=== PATIENT | male | born 1965 | race American Indian/Alaskan Native ===

== ENCOUNTER 2017-10-09 06:45 | Day surgery (SDC) | payer MEDICAID ==
[~2017-10-09 06:45] MED LIST: ANCEF/STERILE WATER 2 GM/20 ML IV NR
--- NOTE | 2017-10-09 07:51 | Anesthesia Consultation ---
Anesthesia Consult and Med Hx Date of service: 10/09/17 - Airway Anesthetic Teeth Evaluation: Poor (front bottom teeth very loose) ROM Head & Neck: Adequate Mental/Hyoid Distance: Adequate Mallampati Class: Class II Intubation Access Assessment: Probably Good - Pulmonary Exam CTA: Yes - Cardiac Exam Cardiac Exam: RRR - Pre-Operative Health Status ASA Pre-Surgery Classification: ASA3 - Pulmonary Hx Smoking: Yes Hx Sleep Apnea: Yes - Cardiovascular System Hx Hypertension: Yes (X 5Y) - Central Nervous System Hx Neuromuscular Disorder: Yes (OA) - Gastrointestinal Hx Gastroesophageal Reflux Disease: Yes - Endocrine Hx Non-Insulin Dependent Diabetes: Yes - Other Systems Hx Obesity: Yes
--- NOTE | 2017-10-09 07:52 | Anesthesia Day of Surgery ---
Anesthesia Day of Surgery - Day of Surgery Patient Examined: Yes Patient H&P Reviewed: Yes Patient is NPO: Yes
[2017-10-09] MEDS ORDERED: VERSED IV NR (08:00)
[2017-10-09] MEDS ORDERED: NACL 0.9% 1000 ML 1,000 ML IV SCH (08:00)
[2017-10-09] MEDS ORDERED: PEPCID PO NR (08:00)
[2017-10-09] MEDS ORDERED: NACL BACTERIOSTATIC INFILTRATI ONE (08:21)
[2017-10-09] MEDS ORDERED: DILAUDID ONE (08:48)
[2017-10-09] MEDS ORDERED: XYLOCAINE MPF 2% ONE (08:48)
[2017-10-09] MEDS ORDERED: DIPRIVAN 10 MG/ML IV ONE ×4 (08:49→10:22)
[2017-10-09] MEDS ORDERED: MARCAINE 0.25% INFILTRATI ONE ×2 (09:44)
[2017-10-09] MEDS ORDERED: XYLOCAINE 1% 20 mL INFILTRATI ONE ×2 (09:44)
[2017-10-09] MEDS ORDERED: NACL 0.9% IR ONE (09:52)
[2017-10-09] MEDS ORDERED: VERSED ONE (10:10)
[2017-10-09] MEDS ORDERED: ZOFRAN ONE (10:27)
--- NOTE | 2017-10-09 10:43 | Post Operative Note ---
Pre-op diagnosis: Sebaceous cysts scalp and antr chest wall Post-op diagnosis: same Findings: mutiple sebaceous cysts - scalp -1 : antr chest wall - 3 Procedure: Excision sebaceous cysts scalp , antr chest wall Anesthesia: MAC Surgeon: ANA MENDES Estimated blood loss: minimal Pathology: list (sebaceous cysts) Specimen disposition: to lab Condition: stable Disposition: PACU
--- NOTE | 2017-10-09 10:44 | Discharge Summary ---
Short Stay Discharge Plan Weight Bearing Status: Full Weight Bearing Diet: regular Wound: open to air Follow up with: PRIMARY CARE, [Primary Care Provider] - 7 Days Prescriptions: HYDROcodone/APAP 5-325 [[place] 5-325 mg TAB] 1 each PO Q6HR PRN #20 tablet PRN Reason: Pain
[2017-10-09] MEDS ORDERED: NORCO 5/325 PO PRN (11:07)
--- NOTE | 2017-10-09 11:49 | Operative Report ---
PREOPERATIVE DIAGNOSIS: Multiple sebaceous cysts, scalp and anterior chest wall. POSTOPERATIVE DIAGNOSIS: Multiple sebaceous cysts, scalp and anterior chest wall. OPERATIVE PROCEDURE: Excision of multiple sebaceous cysts. ANESTHESIA: Local 1% Xylocaine with 0.25% Marcaine and IV sedation. SPECIMENS: Sebaceous cyst. BLOOD LOSS: Minimal. IMPLANTS: None. INDICATIONS: A 52-year-old man originally presented with an infected sebaceous cyst, anterior chest wall to the right side of the midline that was drained in the office this is healed well. He has noninfected sebaceous cyst in the anterior chest wall and the scalp and he is brought in for excision of all the 4 of them. FINDINGS: Scalp lesion measured 1.5 x 2 cm in the right parietal area without any infection. Anterior chest wall had 3 lesions and to the right of the midline below the nipple was the area that he had I and D done and has healed well. There was no residual scarring. Adjacent to that on the right side, there was a 1.5 x 1.5 cm sebaceous cyst and below the nipple on the left anterior chest wall, there was another two 1.5 x 2 cm sebaceous cysts. All was sent for histopathological examination. DESCRIPTION OF PROCEDURE: After satisfactory IV sedation, initially the scalp lesion was prepped and draped and after infiltrating local anesthetic with a small piece of scalp skin, the lesion was removed and hemostasis was checked by cautery. The wound was irrigated with saline solution and subdermal tissue approximated with 3-0 Vicryl, skin with 4-0 Vicryl. With a separate prepping and draping of the anterior chest wall lesion, all of them were excised using a similar technique, using local anesthetic. All the incisions were closed in 2-layers with 3-0 Vicryl and 4-0 Vicryl. He tolerated the procedure well. Blood loss was minimal. JOB# [id number] HELENN/KELSEY
[2017-10-09 17:59] VITALS: BP 130/92
== END 2017-10-09 12:20 | disposition home or self-care (01) ==
LOC: OR 06:45
PROVIDERS: ATTEND Surgery
DX: L72.3 Sebaceous cyst (principal); I10 Essential (primary) hypertension; K21.9 Gastro-esophageal reflux disease without esophagitis; M19.90 Unspecified osteoarthritis, unspecified site; E11.9 Type 2 diabetes mellitus without complications; E78.00 Pure hypercholesterolemia, unspecified; G47.33 Obstructive sleep apnea (adult) (pediatric); F17.200 Nicotine dependence, unspecified, uncomplicated; F41.9 Anxiety disorder, unspecified; F32.9 Major depressive disorder, single episode, unspecified; E66.9 Obesity, unspecified; Z68.38 Body mass index [BMI] 38.0-38.9, adult; Z79.899 Other long term (current) drug therapy
CPT/HCPCS: 11406; 11423; 82962; 88304; J0690; J1170; J2250; J2405; J2704; J7030; 88307

== ENCOUNTER 2018-08-05 19:55 | Emergency (ER) | payer SELFPAY ==
[2018-08-05] MEDS ORDERED: NACL 0.9% 1000 ML 1,000 ML IV ONE (20:46)
[2018-08-05 21:16] LABS: Basophils # (Auto) 0.1 K/mm3 (0.0-0.1); Basophils % (Auto) 0.9 % (0.0-1.8); Eosinophils # (Auto) 0.3 K/mm3 (0.0-0.4); Eosinophils % (Auto) 2.8 % (0.0-4.3); Lymphocytes % (Auto) 33.4 % (13.4-35.0); Mean Corpuscular HGB Conc 36 % (32-34); Mean Corpuscular Hemoglobin 35 pg (28-32); Mean Corpuscular Volume 97 fl (84-94); Monocytes # (Auto) 0.5 K/mm3 (0.0-0.8); Monocytes % (Auto) 5.5 % (0.0-7.3); Platelet Count 233 K/mm3 (140-440); Red Blood Count 4.22 M/mm3 (3.65-5.03); Red Cell Distribution Width 13.3 % (13.2-15.2)
[2018-08-05 21:27] LABS: INR 0.89 (0.87-1.13)
[2018-08-05 21:28] LABS: Partial Thromboplastin Time 25.8 Sec. (24.2-36.6)
[2018-08-05 21:33] LABS: Alanine Aminotransferase 14 units/L (7-56); Albumin 3.8 g/dL (3.9-5); BUN/Creatinine Ratio 13; Blood Urea Nitrogen 14 mg/dL (9-20); Hemolysis Index 24; Lipase 33 units/L (13-60)
[2018-08-05 21:43] LABS: Hematocrit 40.9 % (35.5-45.6); Hemoglobin 14.8 gm/dl (11.8-15.2)
[2018-08-05] MEDS ORDERED: NORCO 5/325 PO ONE (22:05)
--- NOTE | 2018-08-05 22:11 | Emergency Department Report ---
HPI - General Chief Complaint: GI Bleed Time Seen by Provider: 08/05/18 21:22 - HPI HPI: Room 1 The patient is a 52-year-old male presenting with a chief complaint of rectal bleeding. The patient states for the past 4-5 days he's noticed blood in stool approximately twice a day. Patient admits to right-sided abdominal pain for the past 6-7 days. Patient states his pain is intermittent. Of note the patient states he had a colonoscopy performed by Dr. Gorman 07/24/2018 that revealed colonic polyps and he had some removed. Patient states there was no bleeding after the procedure for approximately 8 days. Patient now complains of abdominal pain and gives his pain score of 6/10. The patient states his last episode of rectal bleeding occurred at 17:00. Patient does occasional nausea and vomiting but denies hematemesis Location: Gastrointestinal system Duration: [See above] Quality: Pain Severity:6/10 Modifying factors: [see above] Context: [see above] Mode of transportation: [not driving] ED Past Medical Hx - Past Medical History Hx Hypertension: Yes (X 5Y) Hx Diabetes: Yes (NIDDM X5Y) Hx GERD: Yes Additional medical history: Colon Polyps - Surgical History Additional Surgical History: Fissures Repair 7, colonic polyp removal - Social History Smoking Status: Current Some Day Smoker (cigars) Substance Use Type: None (denies illicit drug use), Alcohol (occasional) - Medications Home Medications: Home Medications Medication Instructions Recorded Confirmed Last Taken Type Lisinopril [Zestril TAB] 5 mg PO QDAY 06/09/14 10/03/17 10/08/17 History glipiZIDE [glipiZIDE XL] 2.5 mg PO QDAY 06/09/14 10/03/17 10/08/17 History Meclizine [Antivert] 12.5 mg PO TID PRN #24 tablet 03/13/16 10/09/17 3 Weeks Ago Rx ~09/18/17 oxyCODONE /ACETAMINOPHEN [Percocet 1 tab PO Q6HR PRN 10/03/17 10/03/17 Unknown History 5/325 mg] HYDROcodone/APAP 5-325 [[place] 1 each PO Q6HR PRN #20 tablet 10/09/17 Unknown Rx 5-325 mg TAB] Hydrocortisone [Anucort-HC SUPPOS] 25 mg RC BID #10 supp.rect 08/05/18 Unknown Rx ED Review of Systems ROS: Stated complaint: RECTAL BLEEDING Other details as noted in HPI Constitutional: no symptoms reported Eyes: denies: eye pain ENT: denies: throat pain Respiratory: no symptoms reported Cardiovascular: denies: chest pain Endocrine: no symptoms reported Gastrointestinal: abdominal pain, nausea, vomiting, hematochezia. denies: hematemesis Genitourinary: denies: dysuria Musculoskeletal: denies: back pain Neurological: denies: headache Physical Exam - Physical Exam Vital Signs: Vital Signs 08/05/18 20:40 Temperature 99.4 F Pulse Rate 97 H Respiratory 20 Rate Blood Pressure 159/89 O2 Sat by Pulse 99 Oximetry Physical Exam: GENERAL: The patient is well-developed well-nourished male lying on stretcher not appearing to be in acute distress. [] HEENT: Normocephalic. Atraumatic. Extraocular motions are intact. Patient has moist mucous membranes. NECK: Supple. Trachea midline CHEST/LUNGS: Clear to auscultation. There is no respiratory distress noted. HEART/CARDIOVASCULAR: Regular. There is no tachycardia. There is no gallop rub or murmur. ABDOMEN: Abdomen is soft, mild discomfort to palpation in the right upper quadrant and suprapubic region. Patient has normal bowel sounds. There is no abdominal distention. SKIN: There is no rash. There is no edema. There is no diaphoresis. NEURO: The patient is awake, alert, and oriented. The patient is cooperative. The patient has normal speech MUSCULOSKELETAL: There is no evidence of acute injury. RECTAL: Guaiac negative ED Course Vital Signs 08/05/18 20:40 Temperature 99.4 F Pulse Rate 97 H Respiratory 20 Rate Blood Pressure 159/89 O2 Sat by Pulse 99 Oximetry - Consultations Consultation #1: 08/05/18 23:29 GI paged 08/05/18 23:[address] Chamorro. Ashley to discharge patient home with Brandi-Fredi suppository ED Medical Decision Making - Lab Data Result diagrams: 08/05/18 20:56 08/05/18 20:56 Laboratory Tests 08/05/18 08/05/18 08/05/18 20:56 20:56 20:56 WBC 9.1 RBC 4.22 Hgb 14.8 Hct 40.9 MCV 97 H MCH 35 H MCHC 36 H RDW 13.3 Plt Count 233 Lymph % (Auto) 33.4 [place] % (Auto) 5.5 Eos % (Auto) 2.8 Baso % (Auto) 0.9 Lymph # 3.0 [place] # 0.5 Eos # 0.3 Baso # 0.1 Seg Neutrophils % 57.4 Seg Neutrophils # 5.2 PT 12.5 INR 0.89 APTT 25.8 Sodium 137 Potassium 3.8 Chloride 103.1 Carbon Dioxide 25 Anion Gap 13 BUN 14 Creatinine 1.1 Estimated GFR > 60 BUN/Creatinine Ratio 13 Glucose 107 H Calcium 9.0 Total Bilirubin 0.20 AST 21 ALT 14 Alkaline Phosphatase 54 Total Protein 7.0 Albumin 3.8 L Albumin/Globulin Ratio 1.2 Lipase 33 Blood Type Antibody Screen 08/05/18 20:56 WBC RBC Hgb Hct MCV MCH MCHC RDW Plt Count Lymph % (Auto) [place] % (Auto) Eos % (Auto) Baso % (Auto) Lymph # [place] # Eos # Baso # Seg Neutrophils % Seg Neutrophils # PT INR APTT Sodium Potassium Chloride Carbon Dioxide Anion Gap BUN Creatinine Estimated GFR BUN/Creatinine Ratio Glucose Calcium Total Bilirubin AST ALT Alkaline Phosphatase Total Protein Albumin Albumin/Globulin Ratio Lipase Blood Type O POSITIVE Antibody Screen Negative - Radiology Data Radiology results: report reviewed (CT abdomen and pelvis), image reviewed (CT abdomen and pelvis) [place] [id number] Cat Scan Report Signed Patient: STEPHANIE ARZATE JR MR#: [id number] : 1965 Acct:[id number] Age/Sex: 52 / M ADM Date: 08/05/18 Loc: ED Attending Dr: Ordering Physician: DEEP BOX MD Date of Service: 08/05/18 Procedure(s): CT abdomen pelvis w con Accession Number(s): [id number] cc: DEEP BOX MD FINAL REPORT PROCEDURE: CT ABDOMEN PELVIS W CON TECHNIQUE: Computerized axial tomography of the abdomen and pelvis was performed after the IV injection of iodinated nonionic contrast. HISTORY: right-sided abdominal pain, rectal bleeding COMPARISON: No prior studies are available for comparison. FINDINGS: Visualized lower thorax: No significant abnormality. Liver: Normal size and attenuation. Spleen: Normal size and attenuation. Gallbladder and biliary system: Normal. Pancreas: Normal. Adrenals: Normal. Kidneys: There are no kidney stones or ureteral stones. There is no hydronephrosis.. There is a cyst in the lower pole the left kidney measuring 13 millimeters. GI tract: There is no bowel obstruction, colitis or enteritis. The appendix is normal.. Lymph nodes and mesentery: Normal. Vasculature: Normal. Bladder: Normal. Reproductive organs: Normal. Peritoneum: There is no ascites or free air, abscess or adenopathy.. Musculoskeletal structures: No significant abnormality. Other: None. IMPRESSION: There is no acute intra abdominal abnormality Transcribed By: CO Dictated By: JUAN F ANDRES MD Electronically Authenticated By: JUAN F ANDRES MD Signed Date/Time: 08/05/182313 DD/ 13 TD/TT: 08/05/182313 - Differential Diagnosis rectal bleeding, diverticulosis, bowel perforation Critical care attestation.: If time is entered above; I have spent that time in minutes in the direct care of this critically ill patient, excluding procedure time. ED Disposition Clinical Impression: Acute abdominal pain, Rectal bleeding Disposition: DC-01 TO HOME OR SELFCARE Is pt being admited?: No Does the pt Need Aspirin: No Condition: Stable Instructions: Rectal Bleeding (ED) Additional Instructions: Return to the emergency department immediately should you develop worsening symptoms, fever, inability to tolerate food or liquid or any other concerns. Prescriptions: Hydrocortisone [Anucort-HC SUPPOS] 25 mg RC BID #10 supp.rect Referrals: PRIMARY CAREMD [Primary Care Provider] - 3-5 Days YOUNG GORMAN MD [Staff Physician] - 3-5 Days Forms: Accompanied Note Time of Disposition: 23:41
--- NOTE | 2018-08-05 23:16 | Cat Scan Report ---
FINAL REPORT PROCEDURE: CT ABDOMEN PELVIS W CON TECHNIQUE: Computerized axial tomography of the abdomen and pelvis was performed after the IV injection of iodinated nonionic contrast. HISTORY: right-sided abdominal pain, rectal bleeding COMPARISON: No prior studies are available for comparison. FINDINGS: Visualized lower thorax: No significant abnormality. Liver: Normal size and attenuation. Spleen: Normal size and attenuation. Gallbladder and biliary system: Normal. Pancreas: Normal. Adrenals: Normal. Kidneys: There are no kidney stones or ureteral stones. There is no hydronephrosis.. There is a cyst in the lower pole the left kidney measuring 13 millimeters. GI tract: There is no bowel obstruction, colitis or enteritis. The appendix is normal.. Lymph nodes and mesentery: Normal. Vasculature: Normal. Bladder: Normal. Reproductive organs: Normal. Peritoneum: There is no ascites or free air, abscess or adenopathy.. Musculoskeletal structures: No significant abnormality. Other: None. IMPRESSION: There is no acute intra abdominal abnormality
[2018-08-06 00:09] VITALS: BP 147/83
== END 2018-08-06 00:09 | disposition home or self-care (01) ==
LOC: ED 19:55
DX: K62.5 Hemorrhage of anus and rectum (principal); R10.9 Unspecified abdominal pain; R11.2 Nausea with vomiting, unspecified; I10 Essential (primary) hypertension; E11.9 Type 2 diabetes mellitus without complications; K21.9 Gastro-esophageal reflux disease without esophagitis; F17.200 Nicotine dependence, unspecified, uncomplicated; Z79.84 Long term (current) use of oral hypoglycemic drugs
CPT/HCPCS: 36415; 74177; 80053; 82271; 83690; 85025; 85610; 85730; 86850; 86900; 86901; 93005; 93010; 96360; 96361; 99284; J7030; Q9967